=== PATIENT | male | born 1990 | race Caucasian/White ===

== ENCOUNTER 2018-01-12 10:33 | Emergency (ER) | payer SELFPAY ==
[2018-01-12 10:42] VITALS: BP 118/71; PULSE 90; TEMP 98; BMI 19.8
--- NOTE | 2018-01-12 11:08 | PDOC ---
History of Present Illness - General Chief Complaint: Toothache Stated Complaint: TOOTH ACHE/SWOLLEN FACE Time Seen by Provider: 01/12/18 10:58 History Source: Patient Exam Limitations: No Limitations - History of Present Illness Initial Comments: 01/12/18 11:02 c/o toothache right lower gum line for 3 days, history of same last year. pt does not have a dentist. no pmhx or allergies. Past History - Past Medical History Allergies/Adverse Reactions: Allergies Allergy/AdvReac Type Severity Reaction Status Date / Time No Known Allergies Allergy Verified 01/12/18 10:39 Home Medications: Ambulatory Orders Ibuprofen 800 mg PO TID PRN #20 tablet 01/12/18 Penicillin V Potassium [Pen Vee K -] 250 mg PO QID #28 tablet 01/12/18 COPD: No - Suicide/Smoking/Psychosocial Hx Smoking History: Current every day smoker Have you smoked in the past 12 months: Yes Number of Cigarettes Smoked Daily: 20 Information on smoking cessation initiated: No 'Breaking Loose' booklet given: 12/29/15 Hx Alcohol Use: No Drug/Substance Use Hx: No Substance Use Type: None *Physical Exam - Vital Signs Last Vital Signs Temp Pulse Resp BP Pulse Ox 98 F 90 18 118/71 99 01/12/18 10:36 01/12/18 10:36 01/12/18 10:36 01/12/18 10:36 01/12/18 10:36 - Physical Exam General Appearance: Yes: Nourished, Appropriately Dressed HEENT: positive: EOMI, IVETH, Normal ENT Inspection, TMs Normal, Pharynx Normal, Other (multiple poor dentition, missing cracked teeth no trsimus no evidence of abscess ) Medical Decision Making - Medical Decision Making 01/12/18 18:57 cc: toothache no fever no abscess will prescribe pen [facility] *DC/Admit/Observation/Transfer Diagnosis at time of Disposition: Tooth ache - Discharge Dispostion Disposition: HOME Condition at time of disposition: Good - Prescriptions Prescriptions: Ibuprofen 800 mg PO TID PRN #20 tablet PRN Reason: Severe Pain Penicillin V Potassium [Pen Vee K -] 250 mg PO QID #28 tablet - Referrals Referrals: [facility] [Outside] - Patient Instructions Additional Instructions: follow with [facility] as listed below garlge with warm salt water 4-5 times a day take the penvk as directed take ibuprofen as directed for sever pain with food - Post Discharge Activity
== END 2018-01-12 11:09 | disposition home or self-care (01) ==
LOC: JERFT 10:33 → JER 10:33 → JERFT 11:09
DX: K08.89 Other specified disorders of teeth and supporting structures (principal); F17.210 Nicotine dependence, cigarettes, uncomplicated
CPT/HCPCS: 99281-25